=== PATIENT | male | born 1980 | race Caucasian/White ===

== ENCOUNTER 2023-08-17 06:01 | Day surgery (SDC) | payer OTHER ==
[2023-08-10 13:43] LABS: BASOPHILS % (AUTO) 0.7 % (0-1); EOSINOPHILS # (AUTO) 0.1 X10'3 (0-0.9); EOSINOPHILS % (AUTO) 2.2 % (0-6); LYMPHOCYTES # (AUTO) 1.3 X10'3 (1.1-4.8); LYMPHOCYTES % (AUTO) 21.6 % (21-51); MEAN CORPUSCULAR HEMOGLOBIN 31.1 PG (27.0-31.0); MEAN CORPUSCULAR HGB CONC 34.4 g/dL (33.0-36.5); MEAN CORPUSCULAR VOLUME 90.4 FL (78-98); MEAN PLATELET VOLUME 7.4 FL (7.4-10.4); MONOCYTES # (AUTO) 0.6 X10'3 (0-0.9); MONOCYTES % (AUTO) 10.1 % (2-12); NEUTROPHILS % (AUTO) 65.4 % (42-75); PRE OP HEMATOCRIT 42.2 % (42.0-52.0); PRE OP HEMOGLOBIN 14.5 g/dL (14.0-17.9); PRE OP PLATELET COUNT 267 X10'3 (140-440); PRE OP WHITE BLOOD COUNT 6.1 10'3 (4.8-10.8); RED BLOOD COUNT 4.67 X10'6 (4.70-6.10); RED CELL DISTRIBUTION WIDTH 13.6 % (11.5-14.5)
[2023-08-10 13:57] LABS: ALBUMIN 3.6 G/DL (3.4-5.0); ALBUMIN/GLOBULIN RATIO 0.9 (1.1-1.5); ALKALINE PHOSPHATASE 62 IU/L (46-116); BLOOD UREA NITROGEN 22 MG/DL (7-18); BUN/CREATININE RATIO 10.1 (10.0-20.0); CALCIUM 8.9 MG/DL (8.5-10.1); CHLORIDE 107 MMOL/L (99-107); CREATININE 2.18 MG/DL (0.60-1.10); PRE OP ALT 32 U/L (30-65); PRE OP ANION GAP 8 (8-16); PRE OP AST 23 U/L (10-37); PRE OP BILIRUB, TOTAL 0.6 MG/DL (0.0-1.0); PRE OP GLUCOSE 96 MG/DL (70-104); PRE OP POTASSIUM 4.3 MMOL/L (3.4-5.1); PRE OP SODIUM 141 MMOL/L (135-145); TOTAL PROTEIN 7.4 G/DL (6.4-8.2); eGFR 33 ML/MIN
[~2023-08-17] VITALS: Ht 177.8 cm; Wt 85.0 kg
[2023-08-17] VITALS (13 sets, daily range): BP systolic 101–127; BP diastolic 56–87; PULSE 54–72; RESP 10–17; TEMP 97.7; O2SAT 96–100
[2023-08-17] MEDS: cefazolin 2gm/D5W 100mL 100 ML IV ONE (05:30)
[~2023-08-17 06:01] MED LIST: IRISH SEA MOSS; PANT40TA54 PO; TURMERIC
[2023-08-17] MEDS: famotidine 20mg tablet PO ONE (06:57)
[2023-08-17] MEDS: ringers solution, lacted 1,000 ML IV SCH (06:57)
[2023-08-17] MEDS ORDERED: LIDOcaine 1% 30ml preserv. free vial ONE (07:01)
[2023-08-17] MEDS ORDERED: BUPIVAcaine/PF 2.5mg/ml (0.25%) 10ml vial ONE (07:01)
[2023-08-17] MEDS ORDERED: sevoflurane 250ml liquid IH ONE (07:54)
[2023-08-17] MEDS ORDERED: propofol inj 20 ML IV ONE (07:59)
[2023-08-17] MEDS ORDERED: fentaNYL/PF 50MCG/1 ML 2ML syringe ONE (07:59)
[2023-08-17] MEDS ORDERED: midazolam 1 mg/ML 2ml injection ONE (07:59)
[2023-08-17] MEDS ORDERED: rocuronium 10mg/ml inj IV ONE (08:00)
[2023-08-17] MEDS: LIDOcaine 1% 30ml preserv. free vial IJ ONE (08:42)
[2023-08-17] MEDS ORDERED: proCHLORperazine 10 MG/2 ml inj IV PRN (08:45)
[2023-08-17] MEDS ORDERED: morphine 4 MG/ML inj SYRINge IV PRN (08:45)
[2023-08-17] MEDS ORDERED: ringers solution, lacted 1,000 ML IV SCH (08:45)
[2023-08-17] MEDS ORDERED: morphine 2 MG/ML inj. syringe IV PRN (08:45)
[2023-08-17] MEDS ORDERED: ondansetron/PF 4mg/2ml inj IV PRN (08:45)
[2023-08-17] MEDS ORDERED: meperidine/PF 25mg/ml syringe IV PRN ×2 (08:45)
[2023-08-17] MEDS ORDERED: dexamethasone sod phosphate 4mg/ml inj. ONE (09:22)
[2023-08-17] MEDS ORDERED: neostigmine methylsulfate 1 MG/ML 10ml vial ONE (09:23)
[2023-08-17] MEDS ORDERED: ondansetron/PF 4mg/2ml inj ONE (09:23)
[2023-08-17] MEDS ORDERED: glycopyrrolate 0.2mg/ml inj ONE (09:23)
[2023-08-17] MEDS: meperidine/PF 25mg/ml syringe IV PRN (09:47)
[2023-08-17] MEDS: acetaminophen 1,000mg/100ml IV 100 ML IV ONE (10:14)
[2023-08-17] MEDS: HYDROcodone/acetaminophen 5mg/325mg tablet PO PRN (11:09)
== END 2023-08-17 11:20 | disposition home or self-care (01) ==
LOC: PAS 06:01
PROVIDERS: ATTEND Surgery
DX: K40.90 Unilateral inguinal hernia, without obstruction or gangrene, not specified as recurrent (principal); Z79.899 Other long term (current) drug therapy; K66.0 Peritoneal adhesions (postprocedural) (postinfection); G47.30 Sleep apnea, unspecified; Z98.890 Other specified postprocedural states; Z87.891 Personal history of nicotine dependence
CPT/HCPCS: 36415; 49650; 80053; 82948; 85025; 93005; C1781; J0131; J0690; J1100; J2175; J2250; J2405; J2704; J2710; J3010; J3490; J7030; J7120; S2900; Z7506; Z7508; Z7512; A4215; A4618